=== PATIENT | male | born 1965 | race Caucasian/White ===

== ENCOUNTER → 2022-02-06 | Outpatient (CLI) | payer BC | END | disposition home or self-care (01) | LOC: LAB SHORT 09:55 | DX: R35.0 Frequency of micturition (principal) | CPT/HCPCS: 87077; 87086; 87186 ==

== ENCOUNTER 2023-08-26 08:48 | Day surgery (SDC) | payer BC ==
[~2023-08-26] VITALS: Ht 190.5 cm; Wt 97.6 kg
[2023-08-26] MEDS ORDERED: SITA100T2 (09:28)
[2023-08-26] MEDS ORDERED: ATOR80 (09:28)
[2023-08-26] MEDS ORDERED: METF500C (09:28)
[2023-08-26 15:22] VITALS: BP 120/75
== END 2023-08-26 11:22 | disposition home or self-care (01) ==
LOC: ORSCSDS 08:48
PROVIDERS: Internal Medicine Gastroenterology
PROC: 0DJD8ZZ Inspection of Lower Intestinal Tract, Via Natural or Artificial Opening Endoscopic (ICD-10-PCS; principal; 2023-08-26 10:45)
PROC: 0DB58ZX Excision of Esophagus, Via Natural or Artificial Opening Endoscopic, Diagnostic (ICD-10-PCS; principal; 2023-08-26 10:45)
DX: R10.13 Epigastric pain (principal); Z12.11 Encounter for screening for malignant neoplasm of colon; K22.70 Barrett's esophagus without dysplasia
CPT/HCPCS: 43239; G0121; 82947; 88305; 88312; J2704; J7120

== ENCOUNTER 2023-10-16 09:47 | Day surgery (SDC) | payer BC ==
[~2023-10-16] VITALS: Ht 190.5 cm; Wt 99.2 kg
[~2023-10-16 09:47] MED LIST: ATOR80; METF500C; SITA100T2
[2023-10-16] MEDS ORDERED: OMEP20ER (10:01)
[2023-10-16 11:16] VITALS: BP 127/97
== END 2023-10-16 11:14 | disposition home or self-care (01) ==
LOC: ORSCSDS 09:47 → ORSCMMR 09:48 → ORSCSDS 11:00
PROVIDERS: Internal Medicine Gastroenterology
PROC: 0DB58ZX Excision of Esophagus, Via Natural or Artificial Opening Endoscopic, Diagnostic (ICD-10-PCS; principal; 2023-10-16 11:00)
DX: K22.70 Barrett's esophagus without dysplasia (principal); Z87.11 Personal history of peptic ulcer disease; E11.9 Type 2 diabetes mellitus without complications; Z79.84 Long term (current) use of oral hypoglycemic drugs; Z79.85 Long-term (current) use of injectable non-insulin antidiabetic drugs; Z79.899 Other long term (current) drug therapy
CPT/HCPCS: 82947; 88305; J2704; J7120